=== PATIENT | female | born 1995 ===

== ENCOUNTER 2018-07-17 01:41 | Emergency (ER) | payer OTHER, BC ==
[2018-07-17 01:42] VITALS: BMI 31.7
[2018-07-17 02:34] VITALS: RESP 18; O2SAT 100
[2018-07-17 04:35] LABS: BASO % 0.4 % (0.0-2.0); EOS # 0.4 K/uL (0.0-0.7); EOS % 4.1 % (0.0-4.0); HEMOGLOBIN 13.2 g/dL (12.0-16.0); LYMPH # 2.9 K/uL (1.0-4.3); LYMPH % 32.3 % (20.0-40.0); MEAN CELL VOLUME 90.2 fl (81.0-99.0); MEAN CORPUSCULAR HEMOGLOBIN 29.5 pg (27.0-31.0); MEAN CORPUSCULAR HGB CONC 32.7 g/dL (33.0-37.0); MEAN PLATELET VOLUME 9.3 fl (7.2-11.7); MONO # 0.7 K/uL (0.0-0.8); MONO % 8.2 % (0.0-10.0); NEUT # 4.9 K/uL (1.8-7.0); NRBC % 0.3 % (0.0-0.0); RBC 4.46 Mil/uL (3.80-5.20); RED CELL DISTRIBUTION WIDTH 13.9 % (11.5-14.5); WHITE BLOOD COUNT 8.9 K/uL (4.8-10.8)
[2018-07-17 04:44] LABS: PARTIAL THROMBOPLASTIN TIME 34.5 Seconds (25.6-37.1)
[2018-07-17 04:46] LABS: ALB/GLOB RATIO 1.1 (1.0-2.1); ALBUMIN 4.1 g/dL (3.5-5.0); ALT/SGPT 24 U/L (9-52); AST/SGOT 24 U/L (14-36); BLOOD UREA NITROGEN 13 mg/dl (7-17); GFR NON-AFRICAN AMERICAN > 60
[2018-07-17] MEDS ORDERED: Sodium Chloride 0.9% 50 ML IV ONE (05:04)
[2018-07-17] MEDS ORDERED: Iohexol 300 100 ML IJ ONE (05:04)
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
[2018-07-17 06:42] VITALS: BP 119/72; PULSE 74; TEMP 98.1
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
== END 2018-07-17 05:30 | disposition home or self-care (01) ==
LOC: H.ER 01:41
DX: S16.1XXA Strain of muscle, fascia and tendon at neck level, initial encounter (principal); R10.9 Unspecified abdominal pain; V89.2XXA Person injured in unspecified motor-vehicle accident, traffic, initial encounter; Y92.410 Unspecified street and highway as the place of occurrence of the external cause
CPT/HCPCS: 74177; 80053; 85025; 85610; 85730; 86850; 86900; 96374; 99284; J1885; Q9967